=== PATIENT | male | born 1995 | race Caucasian/White ===

== ENCOUNTER 2021-07-09 19:32 | Emergency (ER) | payer SELFPAY ==
[2021-07-09] MEDS ORDERED: Erythromycin Base 0.5% Ophth Oint 3.5 GM Tube EYEBOTH ONE (20:17)
[2021-07-09] MEDS ORDERED: Ketorolac 10 MG Tab PO ONE (20:19)
== END 2021-07-09 20:40 | disposition home or self-care (01) ==
LOC: LL.ED 19:32
DX: H10.33 Unspecified acute conjunctivitis, bilateral (principal); R03.0 Elevated blood-pressure reading, without diagnosis of hypertension
CPT/HCPCS: 99283; 99284; A9270-GY